=== PATIENT | male | born 1960 | race Caucasian/White ===

== ENCOUNTER → 2018-01-11 | Outpatient (CLI) | payer BC ==
--- NOTE | 2018-01-11 16:18 | PCVCIMAG ---
APPROVED REPORT Study performed: 01/11/2018 15:00:29 Exam: Stress Echocardiogram Indication: CAD s/p PCI, Dyspnea , Hypertension Patient Location: Echo lab Stress Nurse: Yenifer Kramer RN Room #: 2 Status: routine Ht: 5 ft 8 in HR: 71 bpm BP: 120/80 mmHg Rhythm: NSR Medical History Medical History: CAD s/p stent, HTN, Hyperlipidemia Cardiac Risk Factors: HTN, Hyperlipidemia Previous Cardiac Procedures: PCI Pretest Chest Pain Characteristics: No chest pain Exercise History: Physically active Procedure The patient underwent an Exercise Stress Test using the Miguel Protocol. Blood pressure, heart rate, and EKG were monitored. An Echocardiogram was performed by mail technician in four stages in quad fashion. At peak stress, four selected images were obtained and placed side by side with resting images for comparison. Stress Test Details Stress Test: Exercise stress testing was performed using a Miguel protocol. HR Resting HR: 71 bpmMax Heart Rate (APMHR): 162 bpm Max HR Achieved: 160 bpmTarget HR (85% APMHR): 137 bpm % of APMHR: 98 Recovery HR: 86 bpm HR response to stress: Normal HR response to stress BP Resting BP: 120/80 mmHg Max BP: 180/90 mmHg Recovery BP: 124/80 mmHg ECG Resting ECG: Sinus Rhythm, NSSTT changes Stress ECG: Sinus Rhythm ST Change: Non-ischemic Arrhythmia: Rare PVCs Recovery ECG: Sinus Rhythm Recovery ST Change: Non-ischemic Recovery Arrhythmia: None Clinical Reason for Termination: Maximal effort Stress Symptoms: none Exercise duration: 10 min 00 sec Highest Stage Achieved: Stage 4: 4.2 mph at 16% grade. Exercise capacity: 13.4 METs Overall Exercise Capacity for Age: Good Scale: Active Angina Score: None No complications. Stress ECG Conclusion The patient exercised according to the MIGUEL protocol for 10:00 mins; achieving a work level of 13.4 METS. The resting heart rate of 71 bpm emerald to a maximum heart rate of 160 bpm. This value represent 98% of the maximal, age-predicted heart rate. The resting blood pressure of120/80 mmHg, emerald to a maximum blood pressure of 180/90 mmHg. The exercise test was stopped due to fatigue . Pre-Stress Echo The resting Echocardiogram showed normal left ventricular contractility with an estimated Ejection Fraction of about 55-60%. Normal wall motion in all segments on baseline images. Post-Stress Echo The stress Echocardiogram showed normal left ventricular contractility with an estimated Ejection Fraction of about 65-70%. Normal augmentation of wall motion in all segments on post stress images. Clinical No clinical or ECG evidence for ischemia. Conclusion Clinical Response: Non-ischemic Exercise Capacity: Average Stress ECG Response: Non-ischemic Stress Echo Images: Non-ischemic Normal stress echocardiogram with maximal exercise stress. No clinical, EKG or echocardiographic evidence for ischemia. No echocardiographic evidence for exercise induced ischemia. <Conclusion> Normal stress echocardiogram with maximal exercise stress. No clinical, EKG or echocardiographic evidence for ischemia. No echocardiographic evidence for exercise induced ischemia.
== END | disposition home or self-care (01) ==
LOC: PCVCIMAG 15:02
PROVIDERS: ATTEND Internal Medicine Cardiovascular Disease
DX: I25.10 Atherosclerotic heart disease of native coronary artery without angina pectoris (principal); I10 Essential (primary) hypertension; R06.09 Other forms of dyspnea
CPT/HCPCS: 93325; 93351